=== PATIENT | female | born 1965 | race African-American/Black ===

== ENCOUNTER 2019-08-05 14:47 | Emergency (ER) | payer OTHER ==
[2019-08-05 15:12] VITALS: BMI 22.8
--- NOTE | 2019-08-05 15:47 | PDOC ---
Attending Attestation - Resident Resident Name: Krishan Burch - ED Attending Attestation I have performed the following: I have examined & evaluated the patient, The case was reviewed & discussed with the resident, I agree w/resident's findings & plan, Exceptions are as noted - HPI HPI: 08/05/19 15:54 53-year-old female presents with complaint of 6 days of nausea and vomiting. Last episode was today. - Physicial Exam PE: 08/05/19 15:56 slender 53 yo female p/w 6 days of intermittent head ncat neck supple lungs cta b/l cvs [id number] skin warm and dry abdomen no rebound, no guarding,mild tenderness to epigstrium and rt suprapubic area no flank pain neuro alert,ambulatory,moving all extremities 08/05/19 16:00 - Medical Decision Making 08/05/19 15:46 Past surgical history hernia repair past medical history 08/05/19 15:54 Past medical history hypertension, hypothyroidism, schizophrenia 08/05/19 15:56 Reviewing old chart does show endoscopy done in 2010 that showed mild gastritis 08/05/19 16:01 labs ordered 08/05/19 17:11 CBC was reviewed and shows a leukopenia, normal platelets, normal hemoglobin hematocrit However absolute neutrophil count was only 0.5 08/05/19 18:17 pt has UTI and will be discharged on antibiotics
--- NOTE | 2019-08-05 15:51 | PDOC ---
History of Present Illness - General Chief Complaint: Nausea/Vomiting Stated Complaint: ABDOMINAL PAIN & VOMITING Time Seen by Provider: 08/05/19 15:32 History Source: Patient Exam Limitations: No Limitations - History of Present Illness Initial Comments: 08/05/19 15:49 PCP: Various clinics HPI: 53yo F pmh paranoid schizophrenia (followed at [facility] and [facility]), hypothyroidism, leukemia, anemia, asthma, presenting from [place] with nausea, vomiting, abdominal pain for 6 days. Patient reports daily episodes of NBNB emesis with worsening burning sensation radiating up from the epigastrium over the past two days. Nothing has improved her symptoms, nothing has made them worse. She has had an appetite and has tried to eat but throws up shortly thereafter. Denies every having anything like this before. No abdominal surgeries besides a remote hernia repair. Endorses dysuria, denies changes in BMs, no constipation or diarrhea. No chest pain, SOB, immobilizations, leg pain , palpitations, trauma. All: NKDA Meds: Per chart PMH: As above PSH: As above Past History - Travel Traveled outside of the country in the last 30 days: No Close contact w/someone who was outside of country & ill: No - Past Medical History Allergies/Adverse Reactions: Allergies Allergy/AdvReac Type Severity Reaction Status Date / Time No Known Allergies Allergy Verified 08/05/19 15:27 Home Medications: Ambulatory Orders Aripiprazole [Abilify -] 15 mg PO HS #30 tablet 02/21/14 Aspirin [ASA -] 81 mg PO DAILY #30 tab.chew 02/21/14 Lisinopril [Prinivil] 10 mg PO DAILY #30 tablet 02/21/14 Benztropine Mesylate [Cogentin -] 2 mg PO DAILY 06/09/15 Levothyroxine [Synthroid -] 150 mcg PO DAILY 06/09/15 Cephalexin [Keflex] 500 mg PO QID 10 Days #40 capsule 08/05/19 Metoprolol Tartrate [Lopressor -] 25 mg PO DAILY 08/05/19 Rosuvastatin Calcium [Crestor] 20 mg PO DAILY 08/05/19 COPD: No HTN: Yes Psychiatric Problems: Yes (SCHIZOPHRENIA) Thyroid Disease: Yes (HYPO) - Psycho Social/Smoking Cessation Hx Smoking History: Never smoked Have you smoked in the past 12 months: No Information on smoking cessation initiated: No Hx Alcohol Use: No Drug/Substance Use Hx: No Substance Use Type: None Review of Systems - Review of Systems Able to Perform ROS?: Yes Is the patient limited Chinese proficient: Yes Constitutional: No: Chills, Fever HEENTM: No: Nose Congestion, Throat Pain Respiratory: No: Cough, Shortness of Breath Cardiac (ROS): No: Chest Pain, Edema, Irregular Heart Rate, Lightheadedness, Palpitations, Chest Tightness ABD/GI: Yes: Nausea, Vomiting. No: Blood Streaked Bowels, Constipated, Diarrhea , Poor Appetite, Poor Fluid Intake, Rectal Bleeding, Tarry Stools : Yes: Burning, Dysuria. No: Frequency, Hematuria Musculoskeletal: No: Muscle Pain, Muscle Weakness, Neck Pain Integumentary: No: Bruising, Pruritus, Rash Neurological: No: Headache, Numbness, Tingling, Weakness Psychiatric: No: Stressors, Change in Appetite Endocrine: No: Increased Thirst, Increased Urine Hematologic/Lymphatic: No: Anemia, Blood Clots, Easy Bleeding All Other Systems: Reviewed and Negative *Physical Exam - Vital Signs Last Vital Signs Temp Pulse Resp BP Pulse Ox 98 F 65 18 118/75 99 08/05/19 15:09 08/05/19 15:09 08/05/19 15:09 08/05/19 15:09 08/05/19 15:09 - Physical Exam 08/05/19 16:07 Vitals reviewed, AFVSS GEN: Well appearing, appears stated age, NAD, comfortable. AAOx3. HEENT: NCAT, EOMI, PERRL. Sclera anicteric, noninjected. No facial asymmetry. Moist mucous membranes. Normal voice. Trachea midline. CV: RRR, S1/S2, no murmurs / rubs / gallops appreciated. LUNG: CTAB, normal work of breathing. No wheezes, rales, rhonchi. No cough. Speaking full sentences. GI: Soft, +TTP epigastrium and suprapubically, non-distended, +BS, no guarding, no rebound. No masses. Neg CVAT b/l. EXTREMITIES: 2+ distal pulses. No LE edema. No obvious deformities of all extremities. SKIN: Warm, dry, no rashes appreciated, non-jaundiced. PSYCH: Normal mood and oddly related. Cooperative and appropriate. NEURO: CN grossly intact. Moving all extremities well. Normal strength and sensation grossly. ED Treatment Course - LABORATORY CBC & Chemistry Diagram: 08/05/19 16:10 08/05/19 16:10 Medical Decision Making - Medical Decision Making 08/05/19 16:10 53yo F pmh paranoid schizophrenia (followed at [facility] and [facility]), hypothyroidism, leukemia, anemia, asthma, presenting from [place] with nausea, vomiting, abdominal pain for 6 days. - CBC, CMP, Cardiac Profile, Lipase, UA - EKG - Pepcid - Maalox - Zofran 08/05/19 17:41 Laboratory Tests 08/05/19 08/05/19 08/05/19 16:10 16:10 16:10 WBC 1.7 L* RBC 3.72 Hgb 11.7 Hct 34.8 MCV 93.4 MCH 31.3 MCHC 33.5 RDW 15.8 H Plt Count 340 MPV 7.0 L Absolute Neuts (auto) 0.5 L Neutrophils % 26.7 L D Lymphocytes % 58.9 H D Monocytes % 10.8 H Eosinophils % 1.0 D Basophils % 2.6 H Nucleated RBC % 0 Sodium 137 Potassium 3.4 L Chloride 103 Carbon Dioxide 27 Anion Gap 8 BUN 6.7 L Creatinine 0.7 Est GFR (CKD-EPI)AfAm 113.84 Est GFR (CKD-EPI)NonAf 98.23 Random Glucose 77 Calcium 9.4 Total Bilirubin 0.5 AST 36 ALT 32 Alkaline Phosphatase 36 L Creatine Kinase 259 H Creatine Kinase Index 1.8 CK-MB (CK-2) 4.9 H Troponin I < 0.02 Total Protein 8.0 Albumin 4.0 Lipase 88 Urine Color Urine Appearance Urine pH Ur Specific [place] Urine Protein Urine Glucose (UA) Urine Ketones Urine Blood Urine Nitrite Urine Bilirubin Urine Urobilinogen Ur Leukocyte Esterase Urine WBC (Auto) Urine RBC (Auto) Urine Casts (Auto) U Epithel Cells (Auto) Urine Bacteria (Auto) 08/05/19 17:13 WBC RBC Hgb Hct MCV MCH MCHC RDW Plt Count MPV Absolute Neuts (auto) Neutrophils % Lymphocytes % Monocytes % Eosinophils % Basophils % Nucleated RBC % Sodium Potassium Chloride Carbon Dioxide Anion Gap BUN Creatinine Est GFR (CKD-EPI)AfAm Est GFR (CKD-EPI)NonAf Random Glucose Calcium Total Bilirubin AST ALT Alkaline Phosphatase Creatine Kinase Creatine Kinase Index CK-MB (CK-2) Troponin I Total Protein Albumin Lipase Urine Color Yellow Urine Appearance Cloudy Urine pH 7.5 D Ur Specific [place] 1.005 L Urine Protein Negative Urine Glucose (UA) Negative Urine Ketones Negative Urine Blood Negative Urine Nitrite Negative Urine Bilirubin Negative Urine Urobilinogen 0.2 Ur Leukocyte Esterase Trace Urine WBC (Auto) 4 Urine RBC (Auto) 8 Urine Casts (Auto) 2 U Epithel Cells (Auto) 6.2 Urine Bacteria (Auto) 1922.0 - UTI on UA c/w suprapubic pain - Epigastric pain has improved s/p GI cocktail, cardiac profile and EKG negative - Leukopenia 1.7, neutropenia 0.5 - history of leukemia - Will give rocephin here - Discharge with Keflex 500 QID for 10 days Dispo: Home Discharge - Discharge Information Problems reviewed: Yes Clinical Impression/Diagnosis: UTI (urinary tract infection) Qualifiers: Urinary tract infection type: site unspecified Hematuria presence: without hematuria Qualified Code(s): N39.0 - Urinary tract infection, site not specified Condition: Improved Disposition: HOME - Admission No - Additional Discharge Information Prescriptions: Cephalexin [Keflex] 500 mg PO QID 10 Days #40 capsule - Follow up/Referral Referrals: Alessandro Galloway [Primary Care Provider] - - Patient Discharge Instructions Patient Printed Discharge Instructions: DI for Urinary Tract Infection (UTI), DI for Nausea -- Adult, DI for Vomiting -- Adult Additional Instructions: You were seen and evaluated in the ED and were found to have a urinary tract infection. 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 You may take Maalox or Pepcid over the counter for your burning belly pain - these are the medications that helped your symptoms in the emergency department. Follow up with your primary care doctor (Dr. Alessandro Galloway, phone number and address on the other page) on Tuesday morning. Return to the ED for any new or concerning symptoms which include but are not limited to: nausea and vomiting that prevent you from drinking water, fever and chills, or back pain. - Post Discharge Activity
[2019-08-05] MEDS ORDERED: MAG HYDROX/AL HYDROX/SIMETH 30 ML UNIT-DOSE CUP PO ONE (15:54)
[2019-08-05] MEDS ORDERED: SODIUM CHLORIDE 0.9% 500 ML INFUS.BAG IV ONE (15:54)
[2019-08-05] MEDS ORDERED: ACETAMINOPHEN 1000 MG/100 ML VIAL (NON FORMULARY) IVPB ONE (15:54)
[2019-08-05] MEDS ORDERED: FAMOTIDINE 20 MG/50 ML IVPB 20 MG/50 ML MG IVPB ONE ×2 (15:54→16:16)
[2019-08-05] MEDS ORDERED: ACETAMINOPHEN INJECTION 100 ML IVPB ONE (16:15)
[2019-08-05] MEDS ORDERED: MAG HYDROX/AL HYDROX/SIMETH 30 ML UNIT-DOSE CUP ONE (16:16)
[2019-08-05 16:25] LABS: BASO % 2.6 % (0-2.0); HEMATOCRIT 34.8 % (32.4-45.2); HEMOGLOBIN 11.7 GM/dL (10.7-15.3); LYMPH % 58.9 % (8-40); MCH 31.3 pg (25.7-33.7); MCHC 33.5 g/dl (32.0-36.0); MEAN CELL VOLUME 93.4 fl (80-96); MONO % 10.8 % (3.8-10.2); NEUT % 26.7 % (42.8-82.8); PLATELET COUNT 340 K/MM3 (134-434); RBC 3.72 M/mm3 (3.60-5.2); RDW 15.8 % (11.6-15.6)
[2019-08-05 16:47] LABS: BILIRUBIN,TOTAL 0.5 mg/dL (0.2-1); BLOOD UREA NITROGEN 6.7 mg/dL (7-18); CALCIUM 9.4 mg/dL (8.5-10.1); CREATININE 0.7 mg/dL (0.55-1.3); POTASSIUM 3.4 mmol/L (3.5-5.1)
[2019-08-05 16:50] LABS: WHITE BLOOD COUNT 1.7 K/mm3 (4.0-10.0)
[2019-08-05 17:34] LABS: EPI CELLS 6.2 /HPF (0-5/HPF); HYALINE CASTS 2 /lpf (0-8); PH,URINE 7.5 (5.0-8.0); URINE APPEARANCE CLOUDY; URINE BILIRUBIN NEGATIVE (NEGATIVE); URINE COLOR YELLOW; URINE GLUCOSE (UA) NEGATIVE (NEGATIVE); URINE KETONE NEGATIVE (NEGATIVE); URINE LEUK ESTERASE TRACE (NEGATIVE); URINE NITRITE NEGATIVE (NEGATIVE); URINE PROTEIN NEGATIVE (NEGATIVE); URINE RBC 8 /hpf (0-4); URINE UROBILINOGEN 0.2 mg/dL (0.2-1.0); URINE WBC 4 /hpf (0-5)
[2019-08-05] MEDS ORDERED: CEFTRIAXONE 1 GM in DEXTROSE 5%-WATER - 100 ML IVPB ONE (17:42)
[2019-08-05] MEDS ORDERED: CEFTRIAXONE 1 GM/50 ML BAG ONE (18:02)
[2019-08-05 18:34] VITALS: BP 136/85; PULSE 58; TEMP 98
== END 2019-08-05 21:34 | disposition home or self-care (01) ==
LOC: JER 14:47
PROC: 3E033GC Introduction of Other Therapeutic Substance into Peripheral Vein, Percutaneous Approach (ICD-10-PCS; principal; 2019-08-05)
PROC: 3E03329 Introduction of Other Anti-infective into Peripheral Vein, Percutaneous Approach (ICD-10-PCS; 2019-08-05)
PROC: 3E033NZ Introduction of Analgesics, Hypnotics, Sedatives into Peripheral Vein, Percutaneous Approach (ICD-10-PCS; 2019-08-05)
DX: N39.0 Urinary tract infection, site not specified (principal); D64.9 Anemia, unspecified; J45.909 Unspecified asthma, uncomplicated; E03.9 Hypothyroidism, unspecified; F20.0 Paranoid schizophrenia; Z85.6 Personal history of leukemia
CPT/HCPCS: 36415; 80053; 81003; 82550; 82553; 83690; 84484; 85025; 87086; 87186; 96365; 96367; 96375; 99284-25; J0131

== ENCOUNTER 2019-08-06 15:21 | Emergency (ER) | payer OTHER ==
[2019-08-06 15:29] VITALS: TEMP 97.7; BMI 24.4
--- NOTE | 2019-08-06 15:31 | PDOC ---
Rapid Medical Evaluation Medical Evaluation: Allergies Allergy/AdvReac Type Severity Reaction Status Date / Time No Known Allergies Allergy Verified 08/06/19 15:29 Vital Signs Temp Pulse Resp BP Pulse Ox 97.7 F 71 18 134/72 99 08/06/19 15:24 08/06/19 15:24 08/06/19 15:24 08/06/19 15:24 08/06/19 15:24 I have performed a brief in-person evaluation of this patient. The patient presents with a chief complaint of: Seen in ED yesterday, dx with UTI, returns for same complaint; is c/o suprapubic pain with emesis; denies fever, sob, cp, diarrhea; mentions meds in ED did help but the pain returned; patient was noted to be neutropenic in yesterday's labs; denies hx of cancer Pertinent physical exam findings: In NAD, +mild TTP along suprapubic region I have ordered the following: Labs The patient will proceed to the ED for further evaluation. 08/06/19 15:30
--- NOTE | 2019-08-06 19:34 | PDOC ---
History of Present Illness - General Chief Complaint: Pain Stated Complaint: ABDOMINAL PAIN Time Seen by Provider: 08/06/19 18:13 - History of Present Illness Initial Comments: 08/06/19 19:28 53yo F pmh paranoid schizophrenia (followed at [place] and [facility]), hypothyroidism, leukemia, anemia, asthma, presenting from [place] brought in by ambulance for lower abdominal pain while picking up her meds at the pharmacy. pt was recently discharged from the ED for N/V and Abdominal pain with antibiotics for her UTI. Pt did not take any of her meds yet and offered no other complaints. No F/C/N/V/D. NO chest pain, SOB, change in urination. PMH and PSH: As above Constitutional: No: Chills, Fever HEENTM: No: Nose Congestion, Throat Pain Respiratory: No: Cough, Shortness of Breath Cardiac (ROS): No: Chest Pain, Edema, Irregular Heart Rate, Lightheadedness, Palpitations, Chest Tightness ABD/GI: Yes: Nausea, Vomiting. No: Blood Streaked Bowels, Constipated, Diarrhea , Poor Appetite, Poor Fluid Intake, Rectal Bleeding, Tarry Stools : Yes: Burning, Dysuria. No: Frequency, Hematuria Musculoskeletal: No: Muscle Pain, Muscle Weakness, Neck Pain Integumentary: No: Bruising, Pruritus, Rash Neurological: No: Headache, Numbness, Tingling, Weakness Psychiatric: No: Stressors, Change in Appetite Endocrine: No: Increased Thirst, Increased Urine Hematologic/Lymphatic: No: Anemia, Blood Clots, Easy Bleeding All Other Systems: Reviewed and Negative GEN: Well appearing, appears stated age, NAD, comfortable. AAOx3. HEENT: NCAT, EOMI, PERRL. Sclera anicteric, noninjected. No facial asymmetry. Moist mucous membranes. Normal voice. Trachea midline. CV: RRR, S1/S2, no murmurs / rubs / gallops appreciated. LUNG: CTAB, normal work of breathing. No wheezes, rales, rhonchi. No cough. Speaking full sentences. GI: Soft, +TTP epigastrium and suprapubically, non-distended, +BS, no guarding, no rebound. No masses. Neg CVAT b/l. EXTREMITIES: 2+ distal pulses. No LE edema. No obvious deformities of all extremities. SKIN: Warm, dry, no rashes appreciated, non-jaundiced. PSYCH: Normal mood and oddly related. Cooperative and appropriate. NEURO: CN grossly intact. Moving all extremities well. Normal strength and sensation grossly. 08/06/19 19:36 Assessment: most likely related to UTI as pt has yet to take her antibiotics. Pt has labs from less than 24hrs. No need to repeat. Plan: will give patient one time dose of her antibiotics, tylenol 650mg , and pyridium then send back to assisted living. Past History - Past Medical History Allergies/Adverse Reactions: Allergies Allergy/AdvReac Type Severity Reaction Status Date / Time No Known Allergies Allergy Verified 08/06/19 15:29 Home Medications: Ambulatory Orders Aripiprazole [Abilify -] 15 mg PO HS #30 tablet 02/21/14 Aspirin [ASA -] 81 mg PO DAILY #30 tab.chew 02/21/14 Lisinopril [Prinivil] 10 mg PO DAILY #30 tablet 02/21/14 Benztropine Mesylate [Cogentin -] 2 mg PO DAILY 06/09/15 Levothyroxine [Synthroid -] 150 mcg PO DAILY 06/09/15 Cephalexin [Keflex] 500 mg PO QID 10 Days #40 capsule 08/05/19 Metoprolol Tartrate [Lopressor -] 25 mg PO DAILY 08/05/19 Rosuvastatin Calcium [Crestor] 20 mg PO DAILY 08/05/19 COPD: No HTN: Yes Psychiatric Problems: Yes (SCHIZOPHRENIA) Thyroid Disease: Yes (HYPO) - Psycho Social/Smoking Cessation Hx Smoking History: Never smoked Have you smoked in the past 12 months: No Hx Alcohol Use: No Drug/Substance Use Hx: No Substance Use Type: None *Physical Exam - Vital Signs Last Vital Signs Temp Pulse Resp BP Pulse Ox 97.7 F 71 18 134/72 99 08/06/19 15:24 08/06/19 15:24 08/06/19 15:24 08/06/19 15:24 08/06/19 15:24 ED Treatment Course - LABORATORY CBC & Chemistry Diagram: 08/06/19 18:48 08/06/19 18:48 Discharge - Discharge Information Problems reviewed: Yes Clinical Impression/Diagnosis: Abdominal pain Qualifiers: Abdominal location: unspecified location Qualified Code(s): R10.9 - Unspecified abdominal pain Condition: Fair Disposition: HOME - Admission No - Follow up/Referral Referrals: Alessandro Galloway [Primary Care Provider] - - Patient Discharge Instructions Patient Printed Discharge Instructions: DI for Urinary Tract Infection (UTI) Additional Instructions: Please do take your antibiotics as recommended for the next 10 days:Please take them 4 times a day for those 10 days as prescribed. Follow up with your primary care doctor (Dr. Alessandro Galloway, phone number and address on the other page) on Tuesday. Return to the ED for any new or concerning symptoms which include but are not limited to: nausea and vomiting that prevent you from drinking water, fever and chills, or back pain. - Post Discharge Activity
[2019-08-06] MEDS ORDERED: PHENAZOPYRIDINE HCL 100 MG TABLET (FP) PO ONE (19:39)
[2019-08-06] MEDS ORDERED: CEPHALEXIN MONOHYDRATE 500 MG CAPSULE (UD) PO ONE (19:39)
[2019-08-06] MEDS ORDERED: ACETAMINOPHEN 325 MG TABLET (FP) PO ONE (19:39)
[2019-08-06 20:05] LABS: EOS % 1.1 % (0-4.5); HEMATOCRIT 34.2 % (32.4-45.2); HEMOGLOBIN 11.3 GM/dL (10.7-15.3); LYMPH % 64.6 % (8-40); MCH 31.3 pg (25.7-33.7); MCHC 32.9 g/dl (32.0-36.0); MEAN PLT VOLUME 7.4 fl (7.5-11.1); MONO % 9.8 % (3.8-10.2); NEUT % 22.5 % (42.8-82.8); PLATELET COUNT 327 K/MM3 (134-434); RDW 15.9 % (11.6-15.6); WHITE BLOOD COUNT 2.3 K/mm3 (4.0-10.0)
--- NOTE | 2019-08-06 20:29 | PDOC ---
Documentation entered by Cecy Verduzco SCRIBE, acting as scribe for Carri Moore MD. Carri Moore MD: This documentation has been prepared by the justinaibe, Cecy Verduzco SCRIBE, under my direction and personally reviewed by me in its entirety. I confirm that the documentation accurately reflects all work, treatment, procedures, and medical decision making performed by me. Attending Attestation - Resident Resident Name: Mei Gama - ED Attending Attestation I have performed the following: I have examined & evaluated the patient, The case was reviewed & discussed with the resident, I agree w/resident's findings & plan, Exceptions are as noted - HPI HPI: 08/06/19 20:24 53-year-old female returns to the emergency department because she was walking to her pharmacy and started to have some suprapubic cramping. 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 Keflex prescription was written and yesterday she was discharged back to [facility]. Patient was given Tylenol, Pyridium and Keflex will be discharged back to her facility 08/06/19 20:28 The patient is a 53-year-old female with a past medical history significant for paranoid schizophrenia, hypothyroidism, anemia, asthma, presenting to the emergency department from [facility] via EMS for lower abdominal pain. The patient was seen at the ER for nausea, vomiting, and abdominal, the patient was discharged home with UTI antibiotics. The patient denies taking the medication. Denies fever or chills. - Physicial Exam PE: 08/06/19 20:29 Slightly disheveled 53-year-old female presents with various toys and several bags in the emergency department. Brought in by ambulance for suprapubic pain Head normocephalic atraumatic Neck is supple Lungs no wheezing or crackles CVS regular rate rhythm S1-S2 Abdomen no rebound or guarding Skin warm and dry Neuro patient has a slightly strange affect but she is alert and oriented x3 moving all extremities - Medical Decision Making 08/06/19 20Patient has been receiving I looked at the patient's belongings and she has indeed picked up her Keflex from her pharmacy We will give her Pyridium ,Tylenol for her bladder spasms and discharged back to [facility]
[2019-08-06] MEDS ORDERED: CEPHALEXIN MONOHYDRATE 500 MG CAPSULE (UD) ONE (20:31)
[2019-08-06] MEDS ORDERED: ACETAMINOPHEN 325 MG TABLET (FP) ONE (20:31)
[2019-08-06] MEDS ORDERED: PHENAZOPYRIDINE HCL 100 MG TABLET (FP) ONE (20:31)
[2019-08-06 20:35] LABS: ALBUMIN 3.5 g/dl (3.4-5.0); BILIRUBIN,TOTAL 0.5 mg/dL (0.2-1); CALCIUM 9.1 mg/dL (8.5-10.1); CREATININE 0.7 mg/dL (0.55-1.3); POTASSIUM 3.8 mmol/L (3.5-5.1); TOT PROT 7.7 g/dl (6.4-8.2)
[2019-08-06 20:43] VITALS: BP 130/70; PULSE 72
[2019-08-06 21:15] LABS: ANISOCYTOSIS 2+; MACROCYTOSIS 0; PLATELET ESTIMATE NORMAL; TARGET CELLS 1+
== END 2019-08-06 20:45 | disposition home or self-care (01) ==
LOC: JER 15:21
DX: R10.30 Lower abdominal pain, unspecified (principal); Z87.440 Personal history of urinary (tract) infections; D64.9 Anemia, unspecified; E03.9 Hypothyroidism, unspecified; J45.909 Unspecified asthma, uncomplicated; F20.0 Paranoid schizophrenia; Z85.6 Personal history of leukemia
CPT/HCPCS: 36415; 80053; 85025; 99283-25

== ENCOUNTER 2020-07-07 11:31 | Emergency (ER) | payer BC, OTHER ==
[2020-07-07 11:40] VITALS: BMI 24.0
[2020-07-07] MEDS ORDERED: LACTATED RINGERS SOLUTION 1000 ML INFUS.BAG IV ONE (12:40)
[2020-07-07 13:27] LABS: BASO % 1.2 % (0-2.0); EOS % 0.1 % (0-4.5); HEMATOCRIT 35.8 % (32.4-45.2); HEMOGLOBIN 11.9 GM/dL (10.7-15.3); LYMPH % 26.7 % (8-40); MCH 30.7 pg (25.7-33.7); MCHC 33.3 g/dl (32.0-36.0); MEAN CELL VOLUME 92.2 fl (80-96); MEAN PLT VOLUME 7.3 fl (7.5-11.1); MONO % 7.3 % (3.8-10.2); NEUT % 64.7 % (42.8-82.8); PLATELET COUNT 271 K/MM3 (134-434); RBC 3.88 M/mm3 (3.60-5.2); RDW 15.5 % (11.6-15.6); WHITE BLOOD COUNT 3.4 K/mm3 (4.0-10.0)
[2020-07-07 13:32] LABS: INR 1.05 (0.83-1.09); PROTHROMBIN TIME (PATIENT) 12.7 SEC (9.7-13.0)
[2020-07-07 13:34] LABS: ACTIVATED PTT 30.9 SECONDS (25.2-36.5)
[2020-07-07 13:42] LABS: CHLORIDE 103 mmol/L (98-107); POTASSIUM 4.2 mmol/L (3.5-5.1); SODIUM 138 mmol/L (136-145)
[2020-07-07 14:11] LABS: ALBUMIN 4.2 g/dl (3.4-5.0); GLUCOSE,RANDOM 79 mg/dL (74-106)
[2020-07-07 14:12] LABS: ANION GAP 9 MMOL/L (8-16); BLOOD UREA NITROGEN 8.6 mg/dL (7-18); CALCIUM 9.8 mg/dL (8.5-10.1); CO2 27 mmol/L (21-32)
[2020-07-07 14:13] LABS: BILIRUBIN,TOTAL 0.5 mg/dL (0.2-1); CREATININE 0.6 mg/dL (0.55-1.3); TOT PROT 8.6 g/dl (6.4-8.2)
[2020-07-07 14:14] LABS: ALK PHOS 49 U/L (45-117); SGOT/AST 23 U/L (15-37)
[2020-07-07 14:28] LABS: SGPT/ALT 28 U/L (13-61)
[2020-07-07 18:11] VITALS: BP 132/78; PULSE 78; TEMP 98
== END 2020-07-07 18:38 | disposition home or self-care (01) ==
LOC: JER 11:31
DX: K92.0 Hematemesis (principal)
CPT/HCPCS: 36415; 71045-TC-FY; 80053; 82550; 82553; 84484; 85025; 85610; 85730; 86850; 86900; 86901; 93005; 93010; 99285-25

== ENCOUNTER 2020-11-23 10:13 | Emergency (ER) | payer OTHER ==
[2020-11-23 10:19] VITALS: BP 119/76; PULSE 76; TEMP 97; BMI 25.2
== END 2020-11-23 11:07 | disposition home or self-care (01) ==
LOC: JER 10:13 → SUPCPDRO 10:13 → JER 11:07
DX: R22.33 Localized swelling, mass and lump, upper limb, bilateral (principal)
CPT/HCPCS: 99283-25

== ENCOUNTER 2021-02-17 08:29 | Emergency (ER) | payer OTHER ==
[2021-02-17 09:06] VITALS: BP 136/85; PULSE 76; TEMP 98.7; BMI 25.2
[2021-02-17] MEDS ORDERED: KETOROLAC TROMETHAMINE 60 MG/2 ML VIAL IM ONE (09:16)
[2021-02-17] MEDS ORDERED: KETOROLAC TROMETHAMINE 30 MG/1 ML VIAL ONE (09:24)
== END 2021-02-17 11:00 | disposition home or self-care (01) ==
LOC: JER 08:29
PROC: 3E0233Z Introduction of Anti-inflammatory into Muscle, Percutaneous Approach (ICD-10-PCS; principal; 2021-02-17)
DX: H57.11 Ocular pain, right eye (principal)
CPT/HCPCS: 96372; 99284-25; C9803; U0003; U0005

== ENCOUNTER 2021-04-21 20:17 | Emergency (ER) | payer OTHER ==
[2021-04-21 20:23] VITALS: BP 140/84; PULSE 73; TEMP 98.1; BMI 25.2
[2021-04-21] MEDS ORDERED: ACETAMINOPHEN 500 MG TABLET (FP) PO ONE (21:08)
[2021-04-21] MEDS ORDERED: ACETAMINOPHEN 500 MG TABLET (FP) ONE (21:19)
== END 2021-04-22 00:23 | disposition home or self-care (01) ==
LOC: JERFT 20:17
DX: M54.50 Low back pain, unspecified (principal)
CPT/HCPCS: 99283-25

== ENCOUNTER 2022-03-20 16:47 | Emergency (ER) | payer BC, OTHER ==
[2022-03-20 17:05] VITALS: BP 112/66; PULSE 64; RESP 18; TEMP 97.6; BMI 22.3
[2022-03-20] MEDS ORDERED: ACETAMINOPHEN 1000 MG/100 ML BAG IVPB ONE (17:22)
[2022-03-20] MEDS ORDERED: SODIUM CHLORIDE 0.9% 500 ML INFUS.BAG IV ONE (17:22)
[2022-03-20] MEDS ORDERED: FAMOTIDINE 20 MG/50 ML IVPB 20 MG/50 ML MG IVPB ONE (17:28)
[2022-03-20] MEDS ORDERED: ACETAMINOPHEN INJECTION 100 ML IVPB ONE (18:04)
[2022-03-20] MEDS ORDERED: FAMOTIDINE 10 MG/ML VIAL IVPB ONE (18:04)
[2022-03-20 18:19] LABS: EPI CELLS 8 /uL (0-25.1); HYALINE CASTS 1 /uL (0-3.1); URINE APPEARANCE CLOUDY; URINE BACTERIA 8603 /uL (0-1359); URINE BILIRUBIN NEGATIVE (NEGATIVE); URINE COLOR YELLOW; URINE GLUCOSE (UA) NEGATIVE (NEGATIVE); URINE KETONE NEGATIVE (NEGATIVE); URINE LEUK ESTERASE 3+ (NEGATIVE); URINE NITRITE POSITIVE (NEGATIVE); URINE PROTEIN NEGATIVE (NEGATIVE); URINE RBC 7 /uL (0-23.9); URINE WBC 111 /uL (0-25.8)
[2022-03-20 18:23] LABS: INR 1.15 (0.83-1.09); PROTHROMBIN TIME (PATIENT) 13.3 SEC (9.7-13.0)
[2022-03-20 18:26] LABS: ACTIVATED PTT 32.7 SECONDS (25.2-36.5)
[2022-03-20] MEDS ORDERED: CEFTRIAXONE 1 GM in DEXTROSE 5%-WATER - 100 ML IVPB ONE (18:35)
[2022-03-20] MEDS ORDERED: CEFTRIAXONE 1 GM/50 ML BAG ONE (18:37)
[2022-03-20 18:41] LABS: BASO % 0.8 % (0-2.0); EOS % 0.1 % (0-4.5); HEMATOCRIT 29.9 % (32.4-45.2); HEMOGLOBIN 9.8 GM/dL (10.7-15.3); LYMPH % 35.7 % (8-40); MCH 30.6 pg (25.7-33.7); MCHC 32.8 g/dl (32.0-36.0); MEAN CELL VOLUME 93.5 fl (80-96); MEAN PLT VOLUME 6.9 fl (7.5-11.1); MONO % 13.5 % (3.8-10.2); NEUT % 49.9 % (42.8-82.8); PLATELET COUNT 249 10^3/uL (134-434); RDW 14.2 % (11.6-15.6); WHITE BLOOD COUNT 2.2 K/mm3 (4.0-10.0)
[2022-03-20 18:49] LABS: ALBUMIN 3.3 g/dl (3.4-5.0); BILIRUBIN,TOTAL 0.6 mg/dL (0.2-1); BLOOD UREA NITROGEN 9.6 mg/dL (7-18); CALCIUM 9.2 mg/dL (8.5-10.1); CREATININE 0.6 mg/dL (0.55-1.3); TOT PROT 7.2 g/dl (6.4-8.2)
== END 2022-03-20 19:56 | disposition left against medical advice (07) ==
LOC: JER 16:47
PROC: 3E0333Z Introduction of Anti-inflammatory into Peripheral Vein, Percutaneous Approach (ICD-10-PCS; principal; 2022-03-20)
PROC: 3E03329 Introduction of Other Anti-infective into Peripheral Vein, Percutaneous Approach (ICD-10-PCS; 2022-03-20)
PROC: 3E033GC Introduction of Other Therapeutic Substance into Peripheral Vein, Percutaneous Approach (ICD-10-PCS; 2022-03-20)
DX: R19.7 Diarrhea, unspecified (principal); N39.0 Urinary tract infection, site not specified
CPT/HCPCS: 36415; 80053; 81003; 82272; 85025; 85610; 85730; 86850; 86900; 86901; 87086; 87186; 93005; 93010; 99285-25

== ENCOUNTER 2024-01-12 16:22 | Emergency (ER) | payer BC, OTHER ==
[2024-01-12] MEDS: VANCOMYCIN 1,000 MG in DEXTROSE 5%-WATER - 250 ML IVPB ONE (18:03)
[2024-01-12] MEDS ORDERED: VANCOMYCIN 1 GRAM (PRE-DOCKED) 1,000 MG/250 ML BAG IVPB ONE (18:04)
[2024-01-12 18:20] LABS: BASO % 0.4 % (0-2.0); EOS % 0.1 % (0-4.5); HEMATOCRIT 27.1 % (32.4-45.2); HEMOGLOBIN 8.9 GM/dL (10.7-15.3); LYMPH % 17.8 % (8-40); MCH 32.4 pg (25.7-33.7); MCHC 32.9 g/dl (32.0-36.0); MEAN CELL VOLUME 98.5 fl (80-96); MEAN PLT VOLUME 6.7 fl (7.5-11.1); MONO % 2.9 % (3.8-10.2); NEUT % 78.8 % (42.8-82.8); PLATELET COUNT 288 10^3/uL (134-434); RBC 2.75 M/mm3 (3.60-5.2); RDW 14.6 % (11.6-15.6); WHITE BLOOD COUNT 2.5 K/mm3 (4.0-10.0)
[2024-01-12 18:25] LABS: INR 1.05 (0.83-1.09); PROTHROMBIN TIME (PATIENT) 12.1 SEC (9.7-13.0)
[2024-01-12 18:42] LABS: POTASSIUM 3.9 mmol/L (3.5-5.1)
[2024-01-12 18:46] LABS: ALBUMIN 3.8 g/dl (3.4-5.0); BLOOD UREA NITROGEN 17.8 mg/dL (7-18); CALCIUM 9.1 mg/dL (8.5-10.1)
[2024-01-12] MEDS ORDERED: morphine SULFATE 4 MG/ML VIAL ONE (18:46)
[2024-01-12] MEDS: morphine CARPU-JECT 4 MG/1 ML DISP.SYRIN IVPUSH ONE (18:48)
[2024-01-12 18:49] LABS: CREATININE 0.6 mg/dL (0.55-1.3)
[2024-01-12 18:51] LABS: BILIRUBIN,TOTAL 0.6 mg/dL (0.2-1); TOT PROT 8.5 g/dl (6.4-8.2)
[2024-01-12 20:46] VITALS: BP 154/54; PULSE 74; RESP 14; TEMP 98.5
[2024-01-12 21:20] LABS: HIV INTERPRETATION NEGATIVE (NEGATIVE)
== END 2024-01-12 22:02 | disposition short-term general hospital (02) ==
LOC: JER 16:22
PROC: 3E03329 Introduction of Other Anti-infective into Peripheral Vein, Percutaneous Approach (ICD-10-PCS; principal; 2024-01-12)
PROC: 3E033GC Introduction of Other Therapeutic Substance into Peripheral Vein, Percutaneous Approach (ICD-10-PCS; 2024-01-12)
DX: L08.89 Other specified local infections of the skin and subcutaneous tissue (principal); M79.644 Pain in right finger(s)
CPT/HCPCS: 36415; 73130-TC-RT-FY; 73140-TC-RT-FY; 80053; 85025; 85610; 85730; 86803; 86850; 86900; 86901; 87389; 99285-25

== ENCOUNTER 2024-06-15 06:30 | Emergency (ER) | payer BC, OTHER ==
[2024-06-15 06:43] VITALS: BMI 25.9
[2024-06-15 07:31] VITALS: RESP 18
[2024-06-15] MEDS ORDERED: ACETAMINOPHEN INJECTION 100 ML ONE (07:39)
[2024-06-15] MEDS: SODIUM CHLORIDE 0.9% 500 ML INFUS.BAG IV ONE (08:47)
[2024-06-15] MEDS: ACETAMINOPHEN 1000 MG/100 ML BAG IVPB ONE (08:47)
[2024-06-15 08:49] LABS: BASO % 0.3 % (0-2.0); EPI CELLS >36 /uL (0-25.1); HEMATOCRIT 32.1 % (32.4-45.2); HEMOGLOBIN 10.6 GM/dL (10.7-15.3); HYALINE CASTS 1 /uL (0-3.1); LYMPH % 13.3 % (8-40); MCH 31.7 pg (25.7-33.7); MCHC 33.1 g/dl (32.0-36.0); MEAN CELL VOLUME 95.8 fl (80-96); MEAN PLT VOLUME 7.7 fl (7.5-11.1); MONO % 4.2 % (3.8-10.2); NEUT % 82.2 % (42.8-82.8); PLATELET COUNT 248 10^3/uL (134-434); RBC 3.36 M/mm3 (3.60-5.2); RDW 15.1 % (11.6-15.6); URINE APPEARANCE CLEAR; URINE BACTERIA 363 /uL (0-1359); URINE BILIRUBIN NEGATIVE (NEGATIVE); URINE COLOR YELLOW; URINE GLUCOSE (UA) NEGATIVE (NEGATIVE); URINE KETONE 1+ (NEGATIVE); URINE LEUK ESTERASE 2+ (NEGATIVE); URINE NITRITE NEGATIVE (NEGATIVE); URINE PROTEIN TRACE (NEGATIVE); URINE RBC 11 /uL (0-23.9); URINE WBC 99 /uL (0-25.8); WHITE BLOOD COUNT 3.2 K/mm3 (4.0-10.0)
[2024-06-15 08:50] LABS: INR 1.11 (0.83-1.09); PROTHROMBIN TIME (PATIENT) 12.7 SEC (9.7-13.0)
[2024-06-15 08:53] LABS: ACTIVATED PTT 27.6 SECONDS (25.2-36.5)
[2024-06-15] MEDS ORDERED: ACETAMINOPHEN 325 MG TABLET (FP) ONE (09:00)
[2024-06-15] MEDS: ACETAMINOPHEN 500 MG TABLET (FP) PO ONE (09:06)
[2024-06-15 09:11] LABS: POTASSIUM 5.6 mmol/L (3.5-5.1)
[2024-06-15 09:12] LABS: BLOOD UREA NITROGEN 23.3 mg/dL (7-18); CALCIUM 9.1 mg/dL (8.5-10.1)
[2024-06-15 09:16] LABS: CREATININE 0.8 mg/dL (0.55-1.3)
[2024-06-15 09:17] LABS: BILIRUBIN,TOTAL 0.9 mg/dL (0.2-1); TOT PROT 8.6 g/dl (6.4-8.2)
[2024-06-15] MEDS ORDERED: CEPHALEXIN MONOHYDRATE 500 MG CAPSULE (UD) ONE (10:33)
[2024-06-15] MEDS: CEPHALEXIN MONOHYDRATE 500 MG CAPSULE (UD) PO ONE (12:00)
[2024-06-15 12:03] VITALS: BP 103/63; PULSE 65; TEMP 97.8
== END 2024-06-15 12:55 | disposition home or self-care (01) ==
LOC: JER 06:30
DX: N39.0 Urinary tract infection, site not specified (principal); R10.30 Lower abdominal pain, unspecified; K92.1 Melena; Z20.822 Contact with and (suspected) exposure to COVID-19
CPT/HCPCS: 0241U-QW; 36415; 74176-TC; 80053; 81003; 82272; 83605; 83690; 85025; 85610; 85730; 87077; 87086; 99284-25